=== PATIENT | female | born 1975 | race Caucasian/White ===

== ENCOUNTER 2022-02-18 08:56 | Outpatient (CLI) | payer OTHER, SELFPAY ==
--- NOTE | 2022-02-18 09:00 | CRLHL7_ITS ---
For Patients: As a result of the Century Cures Act, medical imaging exams and procedure reports are released immediately into your electronic medical record. You may view this report before your referring provider. If you have questions, please contact your health care provider. Indication: LLQ SOFT TISSUE MASS. MILD SOB. Technique: Postcontrast CT chest, abdomen and pelvis. 66 cc Isovue 370 intravenous contrast. Oral water. Please note that all CT scans at this facility use dose modulation, iterative reconstruction, and/or weight-based dosing when appropriate to reduce radiation dose to as low as reasonably achievable. Comparison: Pelvic MRI 11/03/2021. Pelvic ultrasound 10/30/2021. Findings: In the chest, there is a 6 millimeter nodule in the left lower lobe, 3/71. Mild dependent areas of atelectasis. No pleural effusion. No pneumothorax or pulmonary edema. The thyroid gland is normal. No mediastinal, hilar or axillary adenopathy. Normal breast tissue. In the abdomen, there is no intrahepatic mass. Incidental fat deposition within the liver noted adjacent to the falciform ligament. The adrenal glands are within normal limits. Normal renal parenchymal enhancement. No solid renal mass or hydronephrosis. The spleen is normal. Normal pancreas. No retroperitoneal adenopathy. No mesenteric adenopathy. No bowel obstruction. In the pelvis, the uterus is absent. The vaginal cuff is normal. Moderate posterior pelvic free fluid is present. There is a circumscribed cystic area along the left pelvic sidewall measuring 3.2 cm, 2/213. The bladder is normal. No bowel obstruction or free air. Normal appendix. Osseous structures are unremarkable for age. Impression: Postoperative changes of hysterectomy. Indeterminate cystic area within the left adnexa measuring 3.2 cm. Indeterminate 6 millimeter pulmonary nodule within the left lower lobe. No adenopathy in the chest, abdomen or pelvis. Please note that all CT scans at this facility use dose modulation, iterative reconstruction, and/or weight-based dosing when appropriate to reduce radiation dose to as low as reasonably achievable. Dictated by Noah Medina MD @ 02/18/2022 10:39:49 AM (Electronically Signed)
== END 2022-02-18 08:57 | disposition home or self-care (01) ==
DX: R19.04 Left lower quadrant abdominal swelling, mass and lump (principal); R91.8 Other nonspecific abnormal finding of lung field; R06.02 Shortness of breath
CPT/HCPCS: 71260; 74177; Q9967

== ENCOUNTER 2022-05-24 08:10 | Outpatient (CLI) | payer OTHER, SELFPAY ==
--- NOTE | 2022-05-24 09:00 | CRLHL7_ITS ---
For Patients: As a result of the Century Cures Act, medical imaging exams and procedure reports are released immediately into your electronic medical record. You may view this report before your referring provider. If you have questions, please contact your health care provider. Indication: FOLLOW UP LLQ MASS AND LUNG LESION Technique: Postcontrast CT chest, abdomen and pelvis. 66 cc Isovue 370 intravenous contrast and oral water. Please note that all CT scans at this facility use dose modulation, iterative reconstruction, and/or weight-based dosing when appropriate to reduce radiation dose to as low as reasonably achievable. Comparison: CT 02/18/2022 Findings: In the chest, no mediastinal, hilar or axillary adenopathy. Normal breast tissue. Incidental partial opacification of the jeb azygous vein. Stable 6 millimeter nodule left lower lobe, . No infiltrate or edema. No effusion or pneumothorax. In the abdomen, the liver is within normal limits. Normal gallbladder. The spleen is unremarkable. Normal pancreas. The adrenal glands are normal. No solid renal mass. Extrarenal pelvis is again noted bilaterally. Normal renal parenchymal enhancement. No adenopathy. No bowel obstruction. In the pelvis, postoperative changes of hysterectomy are present. The previously noted left adnexal masslike area is no longer present. The bladder is normal. No bowel obstruction. Appendix is normal. No inguinal or pelvic sidewall adenopathy. The left ovary appears within normal limits. Impression: Stable 6 millimeter left lower lobe pulmonary nodule. Interval resolution of the cystic area within the left adnexa compared to the prior exam. Please note that all CT scans at this facility use dose modulation, iterative reconstruction, and/or weight-based dosing when appropriate to reduce radiation dose to as low as reasonably achievable. Dictated by Noah Medina MD @ 05/24/2022 12:00:11 PM (Electronically Signed)
== END 2022-05-24 08:11 | disposition home or self-care (01) ==
LOC: CT 08:12
PROVIDERS: Visit Provider Nurse Practitioner Primary Care
DX: R19.04 Left lower quadrant abdominal swelling, mass and lump (principal); R91.8 Other nonspecific abnormal finding of lung field
CPT/HCPCS: 71260; 74177; Q9967